=== PATIENT | male | born 1990 | race African-American/Black ===

== ENCOUNTER 2017-07-23 11:34 | Emergency (ER) | payer SELFPAY ==
[2017-07-23] MEDS ORDERED: DUONEB 0.5 MG/3 MG NEB ONE ×3 (11:38→11:42)
[2017-07-23] MEDS ORDERED: ADRENALINE CHL INJ IM ONE (11:38)
[2017-07-23] MEDS ORDERED: DUONEB 0.5 MG/3 MG ONE (11:39)
[2017-07-23] MEDS ORDERED: ADRENALINE CHL INJ ONE (11:41)
[2017-07-23 11:42] VITALS: BP 146/86; BMI 26.4
[2017-07-23] MEDS ORDERED: SOLU-Medrol 125 MG VIAL IVP ONE (11:42)
--- NOTE | 2017-07-23 11:43 | DR.GENAD ---
HPI - Complaint/Symptoms Chief Complaint Doctors Comments: Patient presented to the ED with acute respiratory distress. He reports that he was at a cook out and he evidently ate something with fish. 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 He has had asthma since young age. PMH - PMH Past Surgical History: No Unable to Obtain Due To: Medical urgency ROS - Review of Systems Eyes: No Symptoms Reported ENTM: No Symptoms Reported Respiratoy: Short of Breath, Wheezing Cardiovascular: No Symptoms Reported Gastrointestinal/Abdominal: No Symptoms Reported Genitourinary: No Symptoms Reported Neurological: No Symptoms Reported Musculoskeletal: No Symptoms Reported Integumentary: No Symptoms Reported Hematologic/Lymphatic: No Symptoms Reported Endocrine: No Symptoms Reported Psychiatric: No Symptoms Reported All Other Systems: Reviewed and Negative PE - Vital Signs Vitals: Temperature 98.4 F Pulse Rate 101 Respiratory Rate 20 Blood Pressure 146/86 O2 Sat by Pulse Oximetry 99 - General Limitations: No Limitations General Appearance: Alert, In No Apparent Distress - Head Head Exam: Normal Inspection, Atraumatic - Eyes Eye exam: Normal Appearance, PERRL, EOMI - ENT ENT Exam: Normal Exam External Ear Exam: Normal External Inspection TM/Canal Exam: Bilateral Normal Nose Exam: Normal Nose Exam, Sinus Tenderness Mouth Exam: Normal Inspection Throat Exam: Normal Inspection - Neck Neck Exam: Normal Inspection - Chest Chest Inspection: Normal Inspection, Symmetric Chest Wall Rise - Respiratory Respiratory Exam: Normal Lung Sounds Bilat Respiratory Exam: Bilateral Clear to Auscultation - Cardiovascular Cardiovascular Exam: Regular Rate, Normal Rhythm - Abdominal Exam Abdominal Exam: Normal Inspection, Normal Bowel Sounds Abdominal Tenderness: negative: RUQ, RLQ, LUQ, LLQ, Epigastrium, Suprapubic, Diffuse, Mild, Moderate, Severe, Other - Extremities Extremities Exam: Normal Inspection, Full ROM - Back Back Exam: Normal Inspection, Full ROM - Neurologic Neurological Exam: Alert, Oriented X3, CN II-XII Intact - Psychiatric Psychiatric Exam: Normal Affect - Skin Skin Exam: Warm, Dry, Intact Course - Reevaluation 1st: Improved - Education/Counseling Educated On: Treatment, Diagnosis, Prognosis, Needs for Follow Up ROR - Labs Reviewed Result Diagrams: 07/23/17 11:45 07/23/17 11:45 Laboratory: WBC 7.1 X10^3/uL (3.6-10.0) 07/23/17 11:45 RBC 5.17 X10^6/uL (4.7-6.0) 07/23/17 11:45 Hgb 15.5 g/dL (13.5-18.0) 07/23/17 11:45 Hct 45.3 % (42.0-54.0) 07/23/17 11:45 MCV 87.7 fL (80.0-100.0) 07/23/17 11:45 MCH 30.0 pg (27.0-34.0) 07/23/17 11:45 MCHC 34.2 g/dL (33.0-35.0) 07/23/17 11:45 RDW 14.0 % (11.6-16.5) 07/23/17 11:45 Plt Count 290 X10^3/uL (150.0-450.0) 07/23/17 11:45 MPV 8.2 fL (7.4-11.0) 07/23/17 11:45 Neut % 53.3 % (42.0-75.0) 07/23/17 11:45 Lymph % 37.3 % (21.0-51.0) 07/23/17 11:45 [place] % 6.3 % (0.0-13.0) 07/23/17 11:45 Eos % 2.5 % (0.9-2.9) 07/23/17 11:45 Baso % 0.6 % (0.2-1.0) 07/23/17 11:45 Neut # 3.8 x10^3/uL (2.2-4.8) 07/23/17 11:45 Lymph # 2.6 X10^3/uL (1.3-2.9) 07/23/17 11:45 Marathon # 0.4 x10^3/uL (0.3-0.8) 07/23/17 11:45 Eos # 0.2 x10^3/uL (0.0-0.2) 07/23/17 11:45 Baso # 0.0 X10^3/uL (0.0-0.1) 07/23/17 11:45 Absolute Nucleated RBC 0.1 /100WBC 07/23/17 11:45 - Diagnosis Discharge Problem: Acute asthma exacerbation Qualifiers: Asthma severity: severe Asthma persistence: persistent Qualified Code(s): J45.51 - Severe persistent asthma with (acute) exacerbation - Discharge Plan Condition: Stable - Follow ups/Referrals Follow ups/Referrals: NFD,None [Primary Care Provider] - 3 days - Instructions
[2017-07-23 11:53] LABS: BASOPHILS % (AUTO) 0.6 % (0.2-1.0); EOSINOPHILS # (AUTO) 0.2 x10^3/uL (0.0-0.2); EOSINOPHILS % (AUTO) 2.5 % (0.9-2.9); HEMATOCRIT 45.3 % (42.0-54.0); HEMOGLOBIN 15.5 g/dL (13.5-18.0); LYMPHOCYTES # (AUTO) 2.6 X10^3/uL (1.3-2.9); LYMPHOCYTES % (AUTO) 37.3 % (21.0-51.0); MEAN CORPUSCULAR HGB CONC 34.2 g/dL (33.0-35.0); MEAN CORPUSCULAR VOLUME 87.7 fL (80.0-100.0); MEAN PLATELET VOLUME 8.2 fL (7.4-11.0); MONOCYTES # (AUTO) 0.4 x10^3/uL (0.3-0.8); MONOCYTES % (AUTO) 6.3 % (0.0-13.0); NEUTROPHILS # (AUTO) 3.8 x10^3/uL (2.2-4.8); NEUTROPHILS % (AUTO) 53.3 % (42.0-75.0); PLATELET COUNT 290 X10^3/uL (150.0-450.0); RED BLOOD COUNT 5.17 X10^6/uL (4.7-6.0); WHITE BLOOD COUNT 7.1 X10^3/uL (3.6-10.0)
[2017-07-23 12:05] LABS: ALANINE AMINOTRANSFERASE 32 Units/L (12-78); ALBUMIN 3.9 g/dL (3.4-5.0); ALKALINE PHOSPHATASE 58 Units/L (46-116); ASPARTATE AMINO TRANSFERASE 32 Units/L (15-37); BLOOD UREA NITROGEN 13 mg/dL (7-18); CALCIUM 8.4 mg/dL (8.5-10.1); CHLORIDE 108 mmol/L (98-107); CREATININE 1.05 mg/dL (0.70-1.30); SODIUM 144 mmol/L (136-145); TOTAL PROTEIN 7.7 g/dL (6.4-8.2); eGFR BLACK RACES > 60 (>60); eGFR NON BLACK RACES > 60 (>60)
== END 2017-07-23 12:45 | disposition home or self-care (01) ==
LOC: ER 11:52
DX: J45.51 Severe persistent asthma with (acute) exacerbation (principal)
CPT/HCPCS: 36415; 80053; 85025; 94640; 96372; 99282; 99283; J0170; J2930; J7620